=== PATIENT | male | born 1995 | race Caucasian/White ===

== ENCOUNTER 2018-12-01 19:36 | Observation (INO) ==
[2018-12-01] MEDS ORDERED: Hyoscyamine 0.5 MG/ML MLS IVP ONE (20:41)
[2018-12-01] MEDS ORDERED: 0.9 % Sodium Chloride 1,000 ML IVC ONE (20:41)
[2018-12-01] MEDS ORDERED: Ondansetron 4 MG/2 ML VIAL IVP ONE (20:41)
--- NOTE | 2018-12-01 20:44 | Emergency Department Note ---
Disposition Clinical Impression: Appendicitis Qualifiers: Appendicitis type: unspecified Qualified Code(s): K37 - Unspecified appendicitis Abdominal pain Qualifiers: Abdominal location: right lower quadrant Qualified Code(s): R10.31 - Right lower quadrant pain Disposition: Admitted As Inpatient Condition: Good Referrals: Patricia Chavez MD [Primary Care Provider] - Forms: ED Satisfaction Letter Time of Disposition: 23:15 Nausea/Vomiting/Diarrhea HPI - General Chief complaint: ED Nausea/Vomiting/Diarrhea Stated complaint: "Rectal Bleeding/Abd Pain" Time Seen by Provider: 12/01/18 19:50 Source: patient Mode of arrival: ambulatory Limitations: no limitations Nursing Notes Reviewed: Yes Vital Signs Reviewed: Yes - History of Present Illness HPI Narrative: 23-year-old otherwise healthy male persists for evaluation of "rectal bleeding". Patient describes a GI illness over the past week. States that it started a week ago with some nausea vomiting. Patient did have a couple days with difficulty stooling constipation which progressed to stools. Patient noted today that he had blood in the stool as well as some dark stools. Patient notes some abdominal cramping primarily on the right side over the past 24hrs. Patient denies any fevers. No chest pain or shortness of breath. No difficulty urinating. No history of any Crohn's or ulcerative colitis. No hemorrhoids. Patient is not any type of anti-inflammatories. - Related Data Home Medications Medication Instructions Recorded Confirmed Levothyroxine 11/24/18 Allergies Allergy/AdvReac Type Severity Reaction Status Date / Time No Known Allergies Allergy Verified 12/01/18 18:57 All systems ED: reviewed and negative except as stated. Constitutional: Denies: fever Gastrointestinal: Reports: abdominal pain, nausea, vomiting, diarrhea, constipation Past Medical History - Past Medical History Source: patient Medical history: Reports: thyroid disease Psychiatric history: Reports: no psych history - Social History Smoking Status: Never smoker Smokeless Tobacco Status: No Alcohol use: Reports: none Drug use: Reports: none Physical Exam - General Limitations: no limitations General appearance: alert, in no apparent distress - Head Head exam: atraumatic, normocephalic, normal inspection - Eye Eye exam: Present: normal appearance, PERRL, EOMI - ENT ENT exam: normal exam, normal oropharynx, mucous membranes moist - Neck Neck exam: Present: normal inspection, full ROM, trachea midline - Chest Chest inspection: Present: normal inspection, symmetric chest wall rise - Respiratory Respiratory exam: Present: normal lung sounds bilaterally. Absent: respiratory distress - Cardiovascular Cardiovascular exam: Present: regular rate, normal rhythm. Absent: systolic murmur - Abdominal Exam Abdominal exam: Present: soft, tenderness. Absent: guarding, rebound - Extremities Exam Extremities exam: Present: normal inspection. Absent: pedal edema - Expanded Lower Extremity Exam Neurovascular/Tendon exam: Present: normal capillary refill - Back Exam Back exam: Present: normal inspection - Neurological Exam Neurological exam: Present: alert, oriented X3 - Skin Skin exam: Present: warm, dry, intact, normal color Course Course Narrative: Patient seen and examined. Patient appears be no acute distress. Abdomen soft . Patient does have some mild tenderness in the right lower quadrant. Patient presents for concerns of GI illness. Does have family members with similar symptoms at time of onset. Patient will get basic labs, fluid symptomatic treatment, and CT scan. Disposition pending. - Reevaluation(s) Reevaluation #1: Patient seen and examined. Patient's resting comfortably in no acute distress. Repeat abdominal exams unremarkable. Waiting CT of the abdomen pelvis. Time: 21:45 Reevaluation #2: Patient CT scan results discussed at bedside. Patient states that he has been nothing by mouth for approximately 5 hours. Will discuss the case with the on- call general surgeon. Time: 23:08 - Consultations Consultation #1: Did speak with Dr. Huerta who will see the patient. Recommends antibiotics. Time: 23:15 Vital Signs Temperature 98.0 F 12/01/18 19:37 Pulse Rate 102 12/01/18 19:37 Respiratory Rate 18 12/01/18 19:37 Blood Pressure 136/75 12/01/18 19:37 O2 Sat by Pulse Oximetry 99 12/01/18 19:37 Temperature 98.0 F 12/01/18 20:03 Pulse Rate 93 12/01/18 23:04 Respiratory Rate 16 12/01/18 23:04 Blood Pressure 129/83 12/01/18 23:04 O2 Sat by Pulse Oximetry 98 12/01/18 23:04 Oxygen Delivery Oxygen Delivery Room Air Nausea/Vomiting/Diarrhea - [facility] Narrative Medical decision making narrative: Patient presented for concerns of abdominal pain and bloody stool. Abdomen is soft with mild right-sided tenderness. Non-peritoneal. Patient had what he described was a week worth of GI illness with lower abdominal cramping. Patient's pain became more localized in the right lower quadrant. Patient had basic labs as well as CT imaging of the abdomen pelvis which shows a leukocytosis as well as concerns for early acute tip appendicitis. Patient's appendiceal base was normal caliber however there was mildly distended appendiceal tip with fluid concerning for tip appendicitis. This information was passed with the patient as well as the on-call surgeon who will evaluate the patient on the floor. Will provide symptomatic treatment with antibiotics. P atient's exam is unchanged. Patient's resting comfortably. Patient does not appear to be any acute distress. - Lab Data Lab results reviewed: Yes I reviewed the patient's lab results. Result diagrams: 12/01/18 20:59 12/01/18 20:59 Lab Results 12/01/18 12/01/18 Range/Units 20:59 20:59 WBC 13.0 H (4.3-11.1) K/mcL RBC 4.13 L (4.19-5.50) M/mcL Hgb 12.3 L (12.9-16.9) g/dL Hct 35.4 L (37.5-50.1) % MCV 85.7 (83.0-100.0) fL MCH 29.8 (28.0-33.3) pg MCHC 34.7 (31.6-35.5) g/dL RDW 12.6 (11.5-14.5) % Plt Count 273 (140-400) K/mcL MPV 9.5 (9.4-12.4) fL Immature Gran % 0.6 (0-4) % Seg Neutrophils % 78.1 % Lymphocytes % 13.2 % Monocytes % 7.3 % Eosinophils % 0.7 % Basophils % 0.1 % Neutrophils # 10.2 H (1.6-8.9) K/mcL Lymphocytes # 1.7 (0.6-4.6) K/mcL Monocytes # 1.0 (0.0-1.3) K/mcL Eosinophils # 0.1 (0.0-0.6) K/mcL Basophils # 0.0 (0.0-0.2) K/mcL Sodium 138 (136-145) mEq/L Potassium 3.8 (3.5-5.1) mEq/L Chloride 104 (98-107) mEq/L Carbon Dioxide 26 (23-29) mEq/L BUN 6 (6-20) mg/dL Creatinine 1.02 (0.70-1.30) mg/dL Est GFR ( Amer) > 60 (> 60) Est GFR (Non-Af Amer) > 60 (> 60) BUN/Creatinine Ratio 6 (6-26) Glucose 97 (70-105) mg/dL Calculated Osmolality 284 (280-300) Calcium 9.4 (8.6-10.3) mg/dL Total Bilirubin 0.8 (0.3-1.0) mg/dL AST 29 (13-39) Units/L ALT 79 H (7-52) Units/L Alkaline Phosphatase 55 (34-104) Units/L Serum Total Protein 7.6 (6.4-8.9) g/dL Albumin 4.5 (3.5-5.7) g/dL Globulin 3.1 (2.4-3.5) g/dL Albumin/Globulin Ratio 1.5 (1.1-2.2) - Radiology Data Radiology results reviewed: Yes I reviewed the patient's radiology results. Abdomen/Pelvis CT 12/01/18 21:23 IMPRESSION: Findings are suspicious for non perforated (early) acute tip appendicitis. Scattered mildly prominent mesenteric lymph nodes are presumably reactive. D/ / Telly Kraft / Telly Kraft Interpreting Provider: Telly Kraft Shannan - Shannan Situation: Demographics Background: Presenting Complaint Assessment: Vital Signs, Course and respsone to treatment, Patient/Family Expectation Recommendation: Barrier(s) to disposition, Recommendation based on pending studies, treatments, or consults S.Isak Report Given to: Dr. Bradley Campbell Repor Time: 23:19
[2018-12-01 21:15] LABS: Basophils % 0.1 %; Eosinophils # 0.1 K/mcL (0.0-0.6); Eosinophils % 0.7 %; Hematocrit 35.4 % (37.5-50.1); Hemoglobin 12.3 g/dL (12.9-16.9); Immature Granulocytes % 0.6 % (0-4); Lymphocytes # 1.7 K/mcL (0.6-4.6); Lymphocytes % 13.2 %; Mean Corpuscular HGB Conc 34.7 g/dL (31.6-35.5); Mean Corpuscular Hemoglobin 29.8 pg (28.0-33.3); Mean Corpuscular Volume 85.7 fL (83.0-100.0); Mean Platelet Volume 9.5 fL (9.4-12.4); Monocytes % 7.3 %; Neutrophils # 10.2 K/mcL (1.6-8.9); Platelet Count 273 K/mcL (140-400); Red Blood Count 4.13 M/mcL (4.19-5.50); Red Cell Distribution Width 12.6 % (11.5-14.5); Segmented Neutrophils % 78.1 %
[2018-12-01] MEDS ORDERED: Isovue-370 500 ML INFUS..BTL IV ONE (21:23)
[2018-12-01 21:32] LABS: Alanine Aminotransferase 79 Units/L (7-52); Albumin 4.5 g/dL (3.5-5.7); Albumin/Globulin Ratio 1.5 (1.1-2.2); Alkaline Phosphatase 55 Units/L (34-104); Aspartate Amino Transferase 29 Units/L (13-39); BUN/Creatinine Ratio 6 (6-26); Bilirubin,Total 0.8 mg/dL (0.3-1.0); Blood Urea Nitrogen 6 mg/dL (6-20); Calcium 9.4 mg/dL (8.6-10.3); Carbon Dioxide 26 mEq/L (23-29); Chloride 104 mEq/L (98-107); Globulin 3.1 g/dL (2.4-3.5); Glucose 97 mg/dL (70-105); Osmolality,Calculated 284 (280-300); Potassium 3.8 mEq/L (3.5-5.1); Sodium 138 mEq/L (136-145); Total Protein 7.6 g/dL (6.4-8.9); eGFR For Non-African Americans > 60 (> 60)
--- NOTE | 2018-12-01 23:04 | Emergency Department Note ---
Disposition Clinical Impression: Appendicitis Qualifiers: Appendicitis type: unspecified Qualified Code(s): K37 - Unspecified appendicitis Abdominal pain Qualifiers: Abdominal location: right lower quadrant Qualified Code(s): R10.31 - Right lower quadrant pain Disposition: Admitted As Inpatient Condition: Good General Adult HPI - General Chief complaint: ED Nausea/Vomiting/Diarrhea Stated complaint: "Rectal Bleeding/Abd Pain" Time Seen by Provider: 12/01/18 19:50 Source: patient Mode of arrival: ambulatory Limitations: no limitations Nursing Notes Reviewed: Yes Vital Signs Reviewed: Yes - History of Present Illness Pain Scale: 3 - Related Data Home Medications Medication Instructions Recorded Confirmed Levothyroxine 11/24/18 Allergies Allergy/AdvReac Type Severity Reaction Status Date / Time No Known Allergies Allergy Verified 12/01/18 18:57 Constitutional: Denies: fever Gastrointestinal: Reports: abdominal pain, nausea, vomiting, diarrhea, const ipation Past Medical History - Past Medical History Medical history: Reports: thyroid disease Psychiatric history: Reports: no psych history - Social History Smoking Status: Never smoker Smokeless Tobacco Status: No Alcohol use: Reports: none Drug use: Reports: none Physical Exam - General Limitations: no limitations General appearance: alert, in no apparent distress Course Vital Signs Temperature 98.0 F 12/01/18 19:37 Pulse Rate 102 12/01/18 19:37 Respiratory Rate 18 12/01/18 19:37 Blood Pressure 136/75 12/01/18 19:37 O2 Sat by Pulse Oximetry 99 12/01/18 19:37 Temperature 98.0 F 12/01/18 20:03 Pulse Rate 93 12/01/18 23:04 Respiratory Rate 16 12/01/18 23:04 Blood Pressure 129/83 12/01/18 23:04 O2 Sat by Pulse Oximetry 98 12/01/18 23:04 Oxygen Delivery Oxygen Delivery Room Air Medical Decision Making - Lab Data Lab results reviewed: Yes I reviewed the patient's lab results. Result diagrams: 12/01/18 20:59 12/01/18 20:59 Lab Results 12/01/18 12/01/18 Range/Units 20:59 20:59 WBC 13.0 H (4.3-11.1) K/mcL RBC 4.13 L (4.19-5.50) M/mcL Hgb 12.3 L (12.9-16.9) g/dL Hct 35.4 L (37.5-50.1) % MCV 85.7 (83.0-100.0) fL MCH 29.8 (28.0-33.3) pg MCHC 34.7 (31.6-35.5) g/dL RDW 12.6 (11.5-14.5) % Plt Count 273 (140-400) K/mcL MPV 9.5 (9.4-12.4) fL Immature Gran % 0.6 (0-4) % Seg Neutrophils % 78.1 % Lymphocytes % 13.2 % Monocytes % 7.3 % Eosinophils % 0.7 % Basophils % 0.1 % Neutrophils # 10.2 H (1.6-8.9) K/mcL Lymphocytes # 1.7 (0.6-4.6) K/mcL Monocytes # 1.0 (0.0-1.3) K/mcL Eosinophils # 0.1 (0.0-0.6) K/mcL Basophils # 0.0 (0.0-0.2) K/mcL Sodium 138 (136-145) mEq/L Potassium 3.8 (3.5-5.1) mEq/L Chloride 104 (98-107) mEq/L Carbon Dioxide 26 (23-29) mEq/L BUN 6 (6-20) mg/dL Creatinine 1.02 (0.70-1.30) mg/dL Est GFR ( Amer) > 60 (> 60) Est GFR (Non-Af Amer) > 60 (> 60) BUN/Creatinine Ratio 6 (6-26) Glucose 97 (70-105) mg/dL Calculated Osmolality 284 (280-300) Calcium 9.4 (8.6-10.3) mg/dL Total Bilirubin 0.8 (0.3-1.0) mg/dL AST 29 (13-39) Units/L ALT 79 H (7-52) Units/L Alkaline Phosphatase 55 (34-104) Units/L Serum Total Protein 7.6 (6.4-8.9) g/dL Albumin 4.5 (3.5-5.7) g/dL Globulin 3.1 (2.4-3.5) g/dL Albumin/Globulin Ratio 1.5 (1.1-2.2) - Radiology Data Radiology results reviewed: Yes I reviewed the patient's radiology results. Abdomen/Pelvis CT 12/01/18 21:23 IMPRESSION: Findings are suspicious for non perforated (early) acute tip appendicitis. Scattered mildly prominent mesenteric lymph nodes are presumably reactive. D/ / Telly Kraft / Telly Kraft Interpreting Provider: Telly Kraft Attestation Statement - Attestation Attestation: I, Charles Mosqueda MD, personally evaluated this patient and discussed their management with the resident physician. I reviewed the resident's note and agree with the documented findings, medical decision making, and plan of care. 23-year-old male presents to the emergency department with a complaint of some crampy lower abdominal pain which is worse on the right side. Pain started yesterday but became worse today. Today he has had some loose bowel movements and did notice some dark red blood after having several bowel movements. The blood did not seem to resolve in the bowel movements are dark. He has had some nausea but no vomiting. No fever. Patient states he had a gastroenteritis about a week ago with nausea and vomiting and diarrhea and abdominal cramping. That resolved and he has not had a bowel movement all week until today. No difficulty with urination. On examination patient is a well-developed well-nourished male in no acute distress. He is alert and oriented 3. There is no cyanosis or diaphoresis. Breath sounds are clear and equal bilaterally. Heart regular with a mild tachycardia. Abdomen is soft with normal bowel sounds. There is mild mid and left lower abdominal tenderness with moderate right lower quadrant tenderness. No guarding or rebound tenderness. No CVA tenderness. Labs reviewed. CT consistent with non-perforated acute tip appendicitis. The surgeon coupon and bond collection clerk, Dr. Huerta, was consulted and accepted admission of the patient.
[2018-12-01] MEDS ORDERED: cefOXitin 2,000 MG in 0.9 % Sodium Chloride Mini Bag 100 ML IVPB ONE (23:13)
[2018-12-01] MEDS ORDERED: 0.9 % Sodium Chloride 1,000 ML IVC SCH (23:30)
[2018-12-02] MEDS ORDERED: *HR* FentaNYL (PF) 100 MCG/2 ML VIAL IVP ONE (00:17)
[2018-12-02] MEDS ORDERED: OXYCODONE Oral CONC 10 MG/0.5 ML ORAL.SYG SL PRN (03:45)
[2018-12-02] MEDS ORDERED: *HR* Morphine 2 MG/ML SYRINGE IVP PRN (03:46)
[2018-12-02] MEDS ORDERED: Ondansetron 4 MG/2 ML VIAL IVP PRN (03:47)
[2018-12-02 06:18] LABS: Basophils % 0.2 %; Eosinophils # 0.1 K/mcL (0.0-0.6); Eosinophils % 1.2 %; Hematocrit 33.6 % (37.5-50.1); Hemoglobin 11.8 g/dL (12.9-16.9); Immature Granulocytes % 0.6 % (0-4); Lymphocytes # 2.2 K/mcL (0.6-4.6); Lymphocytes % 19.3 %; Mean Corpuscular HGB Conc 35.1 g/dL (31.6-35.5); Mean Corpuscular Hemoglobin 30.6 pg (28.0-33.3); Mean Platelet Volume 9.7 fL (9.4-12.4); Monocytes # 1.1 K/mcL (0.0-1.3); Monocytes % 9.3 %; Platelet Count 248 K/mcL (140-400); Red Blood Count 3.86 M/mcL (4.19-5.50); Red Cell Distribution Width 12.5 % (11.5-14.5); Segmented Neutrophils % 69.4 %
--- NOTE | 2018-12-02 07:15 | Anesthesia Evaluation PreOp ---
Date of Encounter: 12/02/18 - Past History Planned Operation: Laparoscopic Appendectomy Alcohol Use: none, rarely Drug use: none Medications and Allergies Levothyroxine [Synthroid] [place] [address]/02/18 [History] Allergy/AdvReac Type Severity Reaction Status Date / Time No Known Allergies Allergy Verified 12/01/18 18:57 Anesthesia Results - Labs 12/02/18 06:05 12/01/18 20:59 Anesthesia Exam Height: 5'9''/1.75m Weight: 218 lbs/99.3 kg NPO (# of Hours): 8 Pain Scale: 0 Pain Scale Used: Numeric (1 - 10)
[2018-12-02] MEDS: cefOXitin 2,000 MG in Water for inj. (sterile) 20 ML 20 ML IVP SCH ×3 (08:28→23:15)
--- NOTE | 2018-12-02 09:44 | General Surg History&Physical ---
Date of Encounter: 12/02/18 Time of Encounter: 09:00 Assessment and Plan (1) Abdominal pain Current Visit: Yes Status: Acute The assessment and plan as outlined above was discussed with the patient and/or family members who expressed understanding and agreement. All questions were answered. 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 This is associated with new onset rectal bleeding and abnormal CAT scan. We will plan a period of observation and serial physical examinations as well as IV hydration. He was started on Mefoxin last evening anticipating the diagnosis of acute appendicitis, however, like to continue this medicine because of the possibility of enteric toxic enterocolitis Qualifiers: Abdominal location: lower abdomen, unspecified Qualified Code(s): R10.30 - Lower abdominal pain, unspecified History of Present Illness Chief complaint: Abdominal pain and rectal bleeding HPI: Mr. Gong is a 23 year old male Who developed crampy abdominal pain and diarrhea and rectal bleeding about a week ago. He has given a history of his having a similar episode of abdominal pain and diarrhea. He does not have chronic abdominal pain and has no previous history of crampy abdominal pain or diarrhea. Rectal bleeding that he experienced was new in onset. While being evaluated in the emergency room for his diarrhea and rectal bleeding he was noted that he had some lower abdominal pain more on the right side than on the left. A subsequent CAT scan was interpreted as appendiceal tip early appendicitis. He was admitted to the hospital for possible appendectomy. I personally reviewed the CAT scan images. Although the appendix is slightly dilated, there is no periappendiceal inflammation. Of specific note, the mucosa of the right colon and transverse colon is very edematous and swollen and markedly abnormal. These findings may be related to infectious or toxic gastroenteritis, inflammatory bowel disease, or acute appendicitis to be included low in the differential diagnosis Today on history the patient states he does not have localized abdominal pain but more crampy abdominal pain. His diarrhea has stopped. He is not had any rectal bleeding during hospital admission. At this point I am not convinced that the patient has acute appendicitis. He may have infectious or an or toxic gastroenteritis or inflammatory bowel disease. I believe a period of hydration and serial physical examinations with observation is warranted. We will continue with diagnostic measures 2 address the differential diagnosis Past Med Surg Social Fam HX - Past Medical History Medical history: thyroid disease Psychiatric history: no psych history - Past Surgical History Surgical History: tonsilectomy Additional surgical history: nose surgery - Social History Smoking Status: Former smoker Smokeless Tobacco Status: Yes (Uses e cigarettes) Alcohol use: none, rarely Drug use: none - Family History Father Hx Family Cardiac Disorders: Yes Hx Family Respiratory Disorders: No Hx Family Cancer: No Hx Family GI Disorders: No Hx Family Genitourinary Disorders: No Hx Family Endocrine Disorder: Yes (DM) Hx Family Musculoskeletal Disorders: No Hx Family Neuromuscular Disorders: No Hx Family Neurologic Disorders: No Hx Family HEENT Disorders: No Hx Family Autoimmune Disorders: No Hx Family Reproductive Disorders: No Hx Family Psychosocial Disorders: No Hx Family Medical Disorders: No Grandfather Hx Family Respiratory Disorders: Yes (Lung cancer) Medications and Allergies Levothyroxine [Synthroid] 125 mcg PO 0630 12/02/18 [History] Allergy/AdvReac Type Severity Reaction Status Date / Time No Known Allergies Allergy Verified 12/01/18 18:57 Review of Systems All systems PM: The remainder of the systems were reviewed and are negative General Surgery Exam Initial Vital Signs Temp Pulse Resp BP Pulse Ox 98.0 F 102 18 136/75 99 12/01/18 19:37 12/01/18 19:37 12/01/18 19:37 12/01/18 19:37 12/01/18 19:37 - General physical appearance well developed, well nourished, no distress, other (Ill appearing) - Neck no masses, no bruits, trachea midline, no lymphadectomy, no venous distension - Respiratory normal expansion, normal respiratory effort, clear to percussion, clear to auscultation - Cardiovascular Cardiovascular exam: Present: RRR, no murmurs/rubs/gallops - Abdomen Abdomen general surgery: Present: bowel sounds present, soft (No evidence of guarding or rebound. He does have pain to deep palpation in the right mid abdomen) - Neurologic Present: CN 2-12 grossly intact, normal coordination, normal sensation - Psychiatric Psychiatric general surgery: Present: appropriate, oriented to person, oriented to place, oriented to time, speech is normal, memory intact Results - Labs 12/02/18 06:05 12/01/18 20:59 Abnormal lab results WBC 11.6 K/mcL (4.3-11.1) H 12/02/18 06:05 RBC 3.86 M/mcL (4.19-5.50) L 12/02/18 06:05 Hgb 11.8 g/dL (12.9-16.9) L 12/02/18 06:05 Hct 33.6 % (37.5-50.1) L 12/02/18 06:05 ALT 79 Units/L (7-52) H 12/01/18 20:59 Diabetes panel 12/01/18 Range/Units 20:59 Sodium 138 (136-145) mEq/L Potassium 3.8 (3.5-5.1) mEq/L Chloride 104 (98-107) mEq/L Carbon Dioxide 26 (23-29) mEq/L BUN 6 (6-20) mg/dL Creatinine 1.02 (0.70-1.30) mg/dL Glucose 97 (70-105) mg/dL Calcium 9.4 (8.6-10.3) mg/dL AST 29 (13-39) Units/L ALT 79 H (7-52) Units/L Alkaline Phosphatase 55 (34-104) Units/L Albumin 4.5 (3.5-5.7) g/dL Calcium panel 12/01/18 Range/Units 20:59 Calcium 9.4 (8.6-10.3) mg/dL Albumin 4.5 (3.5-5.7) g/dL Pituitary panel 12/01/18 Range/Units 20:59 Sodium 138 (136-145) mEq/L Potassium 3.8 (3.5-5.1) mEq/L Chloride 104 (98-107) mEq/L Carbon Dioxide 26 (23-29) mEq/L BUN 6 (6-20) mg/dL Creatinine 1.02 (0.70-1.30) mg/dL Glucose 97 (70-105) mg/dL Calcium 9.4 (8.6-10.3) mg/dL Adrenal panel 12/01/18 Range/Units 20:59 Sodium 138 (136-145) mEq/L Potassium 3.8 (3.5-5.1) mEq/L Chloride 104 (98-107) mEq/L Carbon Dioxide 26 (23-29) mEq/L BUN 6 (6-20) mg/dL Creatinine 1.02 (0.70-1.30) mg/dL Glucose 97 (70-105) mg/dL Calcium 9.4 (8.6-10.3) mg/dL Total Bilirubin 0.8 (0.3-1.0) mg/dL AST 29 (13-39) Units/L ALT 79 H (7-52) Units/L Alkaline Phosphatase 55 (34-104) Units/L Albumin 4.5 (3.5-5.7) g/dL All other labs normal. - Imaging CT scan - abdomen: image reviewed (Personally reviewed the CAT scan images findings are discussed in history of present illness)
[2018-12-02] MEDS: 0.9 % Sodium Chloride 1,000 ML IVC SCH (15:52)
[2018-12-02] MEDS: MetroNIDAZOLE 500 MG/100 ML 500 MG/100 ML BAG IVPB SCH (23:16)
[2018-12-03] MEDS: 0.9 % Sodium Chloride 1,000 ML IVC SCH (02:05)
[2018-12-03] MEDS: MetroNIDAZOLE 500 MG/100 ML 500 MG/100 ML BAG IVPB SCH (04:57)
[2018-12-03 06:24] VITALS: BP 112/76
[2018-12-03 06:29] LABS: Basophils % 0.2 %; Eosinophils # 0.2 K/mcL (0.0-0.6); Eosinophils % 1.8 %; Hematocrit 35.2 % (37.5-50.1); Hemoglobin 11.8 g/dL (12.9-16.9); Immature Granulocytes % 0.6 % (0-4); Lymphocytes # 2.1 K/mcL (0.6-4.6); Lymphocytes % 24.3 %; Mean Corpuscular HGB Conc 33.5 g/dL (31.6-35.5); Mean Corpuscular Hemoglobin 29.6 pg (28.0-33.3); Mean Corpuscular Volume 88.4 fL (83.0-100.0); Mean Platelet Volume 10.2 fL (9.4-12.4); Monocytes # 0.7 K/mcL (0.0-1.3); Monocytes % 7.9 %; Neutrophils # 5.7 K/mcL (1.6-8.9); Platelet Count 265 K/mcL (140-400); Red Blood Count 3.98 M/mcL (4.19-5.50); Red Cell Distribution Width 12.5 % (11.5-14.5); Segmented Neutrophils % 65.2 %
--- NOTE | 2018-12-03 08:24 | Discharge Summary ---
<Mariluz Pickett - Last Filed: 12/03/18 08:19> Orders not resulted at time of discharge: Pending orders 12/02/18 17:20 Culture,Stool [RM] Stat Ova & Parasite Exam Routine 12/04/18 04:00 CBC [Complete Blood Count] [HEME] AM 0400 12/05/18 04:00 CBC [Complete Blood Count] [HEME] AM 0400 Date of Encounter: 12/03/18 Time of Encounter: 08:27 - Discharge Diagnosis (1) C. difficile colitis Priority: Primary Status: Acute General Surgery Exam Initial Vital Signs Temp Pulse Resp BP Pulse Ox 98.0 F 102 18 136/75 99 12/01/18 19:37 12/01/18 19:37 12/01/18 19:37 12/01/18 19:37 12/01/18 19:37 - General physical appearance well developed, well nourished, no distress - ENT normal mucosa - Neck trachea midline - Respiratory normal expansion, normal respiratory effort, clear to auscultation - Cardiovascular Cardiovascular exam: Present: RRR, 15, 16 - Abdomen Abdomen general surgery: Present: bowel sounds present, soft, non tender - Integumentary Integumentary general surgery: Present: warm and dry, no abnormal pigmentation - Neurologic Present: CN 2-12 grossly intact, normal coordination, normal sensation - Musculoskeletal Present: normal gait, normal posture - Psychiatric Psychiatric general surgery: Present: appropriate, oriented to person, oriented to place, oriented to time, speech is normal, memory intact - Hospital Course Hospital course: Mr. Gong is a 23 year old male presented on 12/02/2018 with complaints of abdominal pain. He was originally thought to have possible the tip appendicitis however after further review of the CAT scan by the surgeon, he was noted that the right colon and transverse colon was very edematous and swollen and findings felt to be most likely a result of inflammatory bowel disease or toxic gastroenteritis. A C. difficile stool study was obtained and was noted to be positive. He was started on metronidazole and is now noted to have resolution of symptoms of abdominal pain. He is tolerating a diet without nausea, vomiting, or pain. His vital signs are stable and he is afebrile. We will begin discharge planning to home with oral falgyl (per insurance coverage) with a follow-up with his PCP in approximately one week. - Time Spent with Patient Total time spent providing and/or coordinating discharge services: - Discharge Medications Prescriptions: Ondansetron ODT [Zofran ODT] 4 mg SL Q4HR PRN #15 tab.rapdis PRN Reason: Postsurgical nausea RX: metroNIDAZOLE [Flagyl] 500 mg PO TID 14 Days #42 tablet Home Medications: RX: Levothyroxine [Synthroid] 125 mcg PO 0630 12/02/18 [History] Ondansetron ODT [Zofran ODT] 4 mg SL Q4HR PRN #15 tab.rapdis 12/03/18 [Rx] RX: metroNIDAZOLE [Flagyl] 500 mg PO TID 14 Days #42 tablet 12/03/18 [Rx] Allergies/Adverse Reactions: Allergy/AdvReac Type Severity Reaction Status Date / Time No Known Allergies Allergy Verified 12/01/18 18:57 Date of admission: 12/01/18 23:28 Primary care physician: Patricia Chavez MD Discharging clinician: Cristopher Huerta Anticipated date of discharge: 12/03/18 Labs on day of discharge: Labs from last 24 hours 12/03/18 12/02/18 12/02/18 05:39 17:20 05:26 WBC 8.7 RBC 3.98 L Hgb 11.8 L Hct 35.2 L MCV 88.4 MCH 29.6 MCHC 33.5 RDW 12.5 Plt Count 265 MPV 10.2 Immature Gran % 0.6 Seg Neutrophils % 65.2 Lymphocytes % 24.3 Monocytes % 7.9 Eosinophils % 1.8 Basophils % 0.2 Neutrophils # 5.7 Lymphocytes # 2.1 Monocytes # 0.7 Eosinophils # 0.2 Basophils # 0.0 POC Glucose 95 Stl C. diff Tox B Gene Positive A - Impressions ITS Impressions Abdomen/Pelvis CT 12/01/18 21:23 IMPRESSION: Findings are suspicious for non perforated (early) acute tip appendicitis. Scattered mildly prominent mesenteric lymph nodes are presumably reactive. D/ / Telly Kraft / Telly Kraft Interpreting Provider: Telly Kraft - Patient Status Disposition: Home, Self-Care Condition: Good Functional capacity at discharge: independent ambulation Overall status at discharge: patient is progressing back to baseline - Discharge Instructions Instructions: Appendicitis (GEN), Clostridium Difficile Infection (DC) Follow Up With: Patricia Chavez MD [Primary Care Provider] - 12/10/18 10:00 am Additional Instructions: Take your antibiotics as directed. Do not stop antibiotics without talking to your provider. Ensure you wash your hands with soap each time you use the bathroom. Instructor family members that they must wash her hands with soap and water each time they use the bathroom. Do not drink alcohol while taking metronidazole. Drinking alcohol while taking metronidazole can cause violent abdominal pain and vomiting. Refrain from alcohol use for 48 hours after completing metronidazole. Follow up with your PCP in one week <Cristopher Huerta Perfecto - Last Filed: 12/03/18 12:55> Orders not resulted at time of discharge: Pending orders 12/02/18 17:20 Culture,Stool [RM] Stat Ova & Parasite Exam Routine Date of Encounter: 12/03/18 - Discharge Diagnosis (1) Abdominal pain Status: Acute Qualifiers: Abdominal location: lower abdomen, unspecified Qualified Code(s): R10.30 - Lower abdominal pain, unspecified General Surgery Exam Initial Vital Signs Temp Pulse Resp BP Pulse Ox 98.0 F 102 18 136/75 99 12/01/18 19:37 12/01/18 19:37 12/01/18 19:37 12/01/18 19:37 12/01/18 19:37 - Hospital Course Hospital course: Mr. Gong is a 23 year old male - Time Spent with Patient Total time spent providing and/or coordinating discharge services: Date of admission: 12/01/18 23:28 Primary care physician: Patricia Chavez MD Labs on day of discharge: Labs from last 24 hours 12/03/18 12/02/18 12/02/18 05:39 17:20 05:26 WBC 8.7 RBC 3.98 L Hgb 11.8 L Hct 35.2 L MCV 88.4 MCH 29.6 MCHC 33.5 RDW 12.5 Plt Count 265 MPV 10.2 Immature Gran % 0.6 Seg Neutrophils % 65.2 Lymphocytes % 24.3 Monocytes % 7.9 Eosinophils % 1.8 Basophils % 0.2 Neutrophils # 5.7 Lymphocytes # 2.1 Monocytes # 0.7 Eosinophils # 0.2 Basophils # 0.0 POC Glucose 95 Stl C. diff Tox B Gene Positive A - Impressions ITS Impressions Abdomen/Pelvis CT 12/01/18 21:23 IMPRESSION: Findings are suspicious for non perforated (early) acute tip appendicitis. Scattered mildly prominent mesenteric lymph nodes are presumably reactive. D/ / Telly Kraft / Telly Kraft Interpreting Provider: Telly Kraft - Attending Attestation I have personally performed a face to face evaluation on this patient. I have reviewed and agree with the care plan. History and Exam by me shows: The patient is seen and evaluated on morning rounds with the clinical nurse practitioner. He is pain-free. Clostridium difficile toxin was positive. He is being treated with Flagyl. He had a formed stool. He should be ready for discharge for outpatient therapy. Cristopher Huerta MD FACS
[2018-12-03] MEDS: cefOXitin 2,000 MG in Water for inj. (sterile) 20 ML 20 ML IVP SCH (08:44)
[2018-12-05 15:20] LABS: Ova & Parasite Stain NEGATIVE (Negative)
== END 2018-12-03 12:48 | disposition home or self-care (01) ==
LOC: EMEROOARM 19:36 → 3ANU 19:36
PROVIDERS: ADMIT Surgery; ATTEND Surgery